=== PATIENT | male | born 1970 | race Caucasian/White ===

== ENCOUNTER → 2019-01-24 | Outpatient (CLI) | payer BC ==
--- NOTE | 2019-01-26 07:21 | MRI ---
EXAM DESCRIPTION: MRI right knee CLINICAL HISTORY: Medial sided knee pain COMPARISON: None. TECHNIQUE: Multiplanar, multisequence MR images of the right knee FINDINGS: Tear of the medial meniscus posterior body. Intrameniscal globular signal with a linear tear from the periphery of the inferior articular surface. Subluxation of the peripheral meniscus into the inferior medial gutter. Subjacent chondrosis along the medial tibial margin and underlying osseous edema along the tibial margin. Chondral thinning along the anterior medial plateau with 2 additional foci of edema. No subchondral marrow edema in the femur No lateral meniscal tear. No high-grade chondrosis or chronic osteochondral lesion lateral femorotibial Grade 4 chondrosis upper patellar apex extending medially over about 12 x 10 mm. Subchondral cystic change and edema. The remainder of the patellar cartilage is intact. Trochlear chondral thinning, grade 2/3 over the lower medial trochlea about 9 mm ACL, PCL, MCL and fibular collateral ligaments are intact. Periligamentous edema MCL relates to the medial meniscal tear and chondrosis. No MCL laxity or intrinsic signal Biceps femoris, popliteus and iliotibial band tendons are normal. Patellar and quadriceps tendons and tendons of the posterior medial knee are intact Small joint effusion. No synovitis. Intra-articular body, 3 mm and a small recess behind the PCL IMPRESSION: Tear of the posterior body medial meniscus with subluxation into the inferior medial gutter. 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
== END ==
LOC: MRI 11:00
PROVIDERS: ATTEND Family Medicine
DX: S83.241A Other tear of medial meniscus, current injury, right knee, initial encounter (principal); M22.8X1 Other disorders of patella, right knee

== ENCOUNTER 2019-01-28 10:11 | Emergency (ER) | payer BC ==
[2019-01-28] MEDS ORDERED: SODIUM CHLORIDE 0.9% (FLUSH) 10 ML SYG IV PRN (10:22)
[2019-01-28] MEDS: ASPIRIN TABLET 325 MG TAB PO ONE (10:26)
--- NOTE | 2019-01-28 10:54 | RAD ---
EXAM DESCRIPTION: Chest,1 View CLINICAL HISTORY: 48 years Male, chest tightness COMPARISON: None. TECHNIQUE: AP portable chest. FINDINGS: Heart size is prominent with normal pulmonary vascularity. Minimal patchy atelectasis lung bases. Otherwise no consolidating infiltrate. No pulmonary mass or worrisome nodule. No pneumothorax or pleural effusion. Bones are unremarkable. IMPRESSION: No acute process is identified in the chest. Electronically signed by: Choco Chapman MD 01/28/2019 10:52 AM CDT
--- NOTE | 2019-01-28 11:15 | ED.PDOC ---
History of Present Illness - General Chief Complaint: Chest Pain/HI Stated Complaint: difficulty breathing,chest tightness Time Seen by Provider: 01/28/19 11:13 Source: patient Exam Limitations: no limitations - History of Present Illness Initial Comments: Abelardo weiner Jr. 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 No chronic medical problem.On arrival at er stated symptoms better. Timing/Duration: 4-6 hours Severity: moderate Location: central Activities at Onset: activity Prior Chest Pain/Cardiac Workup: no prior chest pain Improving Factors: rest Worsening Factors: movement Nitro Today/Relief: no nitro taken today Aspirin Treatment Today: 81 mg x 4 Associated Symptoms: other - see hpi Allergies/Adverse Reactions: Allergies NO KNOWN ALLERGY Allergy (Verified 01/28/19 10:20) Home Medications: Ambulatory Orders Atorvastatin Calcium [Lipitor] 20 mg PO ACHS #30 tab 01/28/19 Diclofenac [Zorvolex] 35 mg PO BID 01/28/19 Nitroglycerin 0.4 mg Tab [Nitrostat] 1 ea SL .Q5M PRN #1 bttl 01/28/19 Review of Systems - Review of Systems Constitutional: States: no symptoms reported, chills Cardiology: States: see HPI Gastrointestinal/Abdominal: States: no symptoms reported Genitourinary: States: no symptoms reported Musculoskeletal: States: no symptoms reported Skin: States: no symptoms reported Neurological: States: no symptoms reported Endocrine: States: no symptoms reported All other Systems: Reviewed and Negative, No Change from Baseline Past Medical History (General) - Patient Medical History Hx Stroke: No Hx of COPD: Yes Hx Congestive Heart Failure: No Hx Diabetes: No Surgical History: other - c-spine - Vaccination History Hx Influenza Vaccination: No - Social History Hx Tobacco Use: Yes Hx Alcohol Use: Yes - occasiobnal;no heavy drinking Family Medical History - Family History Father Family History: Unknown Living Status: Unknown Hx Family Asthma: Yes - copd-dad Hx Cardiac Disease: Yes - mom Physical Exam - Physical Exam General Appearance: Alert, Comfortable, No apparent distress Eyes, Ears, Nose, Throat Exam: normal ENT inspection, TMs normal, pharynx normal Neck: non-tender, full range of motion, supple, normal inspection Respiratory: chest non-tender, lungs clear, normal breath sounds Cardiovascular/Chest: normal peripheral pulses, regular rate, rhythm, no murmur Peripheral Pulses: radial,right: 2+, radial,left: 2+ Gastrointestinal/Abdominal: normal bowel sounds, non tender, soft, no organomegaly Extremity: no pedal edema, no calf tenderness Neurologic: alert, oriented x 3 Skin Exam: warm/dry Progress - Progress Progress: 01/28/19 11:37 Vital Signs - 8 hr 01/28/19 01/28/19 01/28/19 10:17 10:22 11:32 Temperature 97 F L Pulse Rate 75 66 Pulse Rate [ 78 66 Left Brachial] Respiratory 20 16 Rate Blood Pressure 183/89 [Left Arm] O2 Sat by Pulse 99 99 Oximetry - Results/Orders Results/Orders: Laboratory Tests 01/28/19 01/28/19 01/28/19 10:35 10:55 13:55 WBC 7.5 RBC 5.12 Hgb 17.0 Hct 49.2 MCV 96.1 H MCH 33.2 H MCHC 34.6 RDW 13.4 Plt Count 243 MPV 8.1 Absolute Neuts (auto) 4.60 Absolute Lymphs (auto) 2.00 Absolute Monos (auto) 0.60 Absolute Eos (auto) 0.30 Absolute Basos (auto) 0.10 Neutrophils % 61.4 Lymphocytes % 26.3 Monocytes % 7.7 Eosinophils % 3.4 Basophils % 1.2 PT 9.9 INR 0.99 PTT (SP) 24.8 D-Dimer, Quantitative 0.19 Sodium 136 Potassium 4.0 Chloride 103 Carbon Dioxide 23 Anion Gap 14.0 BUN 16 Creatinine 0.75 BUN/Creatinine Ratio 21.3 H Random Glucose 122 H Serum Osmolality 274.5 L Calcium 9.7 Magnesium 2.2 Creatine Kinase 152 136 CK-MB (CK-2) 1.6 1.5 CK-MB (CK-2) % Not Reportable Not Reportable Troponin I < 0.02 < 0.02 DISCUSS TEST RESULT WITH PATIENT RECOMMENDED STAY IN HOSPITAL FOR OBS BUT DE CLINED ADVISED TO CALL UP PRIMARY MD IN AM FOR CARDIOLOGY CONSULT - EKG/XRAY/CT EKG: Sinus, no ST T wave changes Comments: HR-82;IRBBB XRAY: chest - no acute abnormalities Departure - Departure Clinical Impression: Chest tightness or pressure Time of Disposition: 14:55 Disposition: Discharge to Home or Self Care Departure Forms: ED Discharge - Pt. Copy, Patient Portal Self Enrollment Instructions: DI for Chest Pain, Smoking: Not Just Harmful to Your Lungs and Heart Referrals: Rafael Parr MD [Primary Care Provider] - 1-2 Weeks Prescriptions: Atorvastatin Calcium [Lipitor] 20 mg PO ACHS #30 tab Nitroglycerin 0.4 mg Tab [Nitrostat] 1 ea SL .Q5M PRN #1 bttl PRN Reason: Chest Pain Home Medications: Ambulatory Orders Atorvastatin Calcium [Lipitor] 20 mg PO ACHS #30 tab 01/28/19 Diclofenac [Zorvolex] 35 mg PO BID 01/28/19 Nitroglycerin 0.4 mg Tab [Nitrostat] 1 ea SL .Q5M PRN #1 bttl 01/28/19 Additional Instructions: NEED TO TAKE ASPIRIN -81 mg daily(over the counter);Call primary MD in AM for recheck and cardiology referral;RETURN TO EMERGENCY ROOM NEEDED
[2019-01-28 15:11] VITALS: BP 156/98; TEMP 97.5; O2SAT 97
== END 2019-01-28 15:11 | disposition home or self-care (01) ==
LOC: ER 10:11
DX: R07.89 Other chest pain (principal); I45.10 Unspecified right bundle-branch block; R11.0 Nausea; J44.9 Chronic obstructive pulmonary disease, unspecified; Z87.891 Personal history of nicotine dependence

== ENCOUNTER → 2019-02-14 | Outpatient (CLI) | payer BC ==
--- NOTE | 2019-02-14 09:52 | RAD ---
EXAM DESCRIPTION: Pelvis CLINICAL HISTORY: 48 years Male, M25.561/M25.551 COMPARISON: None. FINDINGS: X-ray view the pelvis shows intact bones of the pelvic ring with intact sacrum and lower L-spine. Right hip joint space narrowing is seen medially with femoral head neck junction osteophyte. Normal left hip. No fracture of the proximal femurs. No hip dislocation. IMPRESSION: Degenerative changes of the right hip. Electronically signed by: Choco Chapman MD 02/14/2019 9:50 AM CDT
--- NOTE | 2019-02-14 09:54 | RAD ---
EXAM DESCRIPTION: Knee,Right Complete x-ray CLINICAL HISTORY: 48 years, Male, M25.561/M25.551 COMPARISON: None TECHNIQUE: Four views of the right knee FINDINGS: No fracture or dislocation. Bones appear normally mineralized with normal trabecular pattern. Mild narrowing of medial compartment on frontal view. And mild spurring at the tibial spines. Lateral view shows normal position of the patella. No patellar spurring or enthesopathy. No suprapatellar knee joint effusion. Normal contour of quadriceps and patellar tendons. Fabella is seen posteriorly. Another smaller ossific density could be intra-articular loose body 3 mm. No abnormal patellar tilt or subluxation on patellar sunrise view. Subchondral cyst is seen at the apex of the posterior patella. Mild medial patellar spurring. IMPRESSION: Degenerative changes as described. Electronically signed by: Choco Chapman MD 02/14/2019 9:52 AM CDT
== END ==
LOC: RAD 08:51
PROVIDERS: ATTEND Orthopaedic Surgery
DX: M17.11 Unilateral primary osteoarthritis, right knee (principal); M16.11 Unilateral primary osteoarthritis, right hip

== ENCOUNTER → 2019-02-27 | Outpatient (CLI) | payer BC | LOC: LAB.O 14:22 | PROVIDERS: ATTEND Orthopaedic Surgery | DX: Z01.818 Encounter for other preprocedural examination (principal) ==

== ENCOUNTER 2019-04-17 05:55 | Day surgery (SDC) | payer BC ==
--- NOTE | 2019-04-15 10:45 | HP ---
CHIEF COMPLAINT: Right knee pain. HISTORY OF PRESENT ILLNESS: Mr. Mckinley is a 49-year-old male with a history of pain in the right knee that has been present for several months. He has had pain limiting his daily activity. The pain is at a 6 and aggravating factors include ambulation and range of motion. Alleviating factors have been anti- inflammatory and injection, however, these have been very short-lived. He has this pain every day and there are occasional mechanical symptoms associated with this. There is no other trauma associated with this. The pain is sharp and predominantly medially based. PAST SURGICAL HISTORY: None. MEDICATIONS: Zorvolex. PAIN CONTRACT: None. ALLERGIES: NO KNOWN DRUG ALLERGIES. CODE STATUS: Full code. IMMUNIZATIONS: Up to date. SOCIAL HISTORY: The patient does not smoke and does drink on occasion, but does not use illicit drugs. FAMILY HISTORY: None pertinent to today's complaint. REVIEW OF SYSTEMS: Negative except as indicated in the History of Present Illness. PHYSICAL EXAMINATION: VITAL SIGNS: Blood pressure 149/94. Pulse 78. Height 5'11". Weight 230 pounds. MENTAL STATUS: The patient is awake, alert, and is able to give a good history and participate in the physical. The patient is oriented to person, place and time. SKIN: Normal tone and turgor. HEENT: Normocephalic, atraumatic. Pupils equal, round and reactive. Mucosal membranes are moist. NECK: Normal range of motion. No thyromegaly, no lymphadenopathy. CHEST: Normal respiratory excursion. CARDIAC: Regular rate and rhythm. No murmurs, rubs or gallops. MUSCULOSKELETAL: Bilateral upper extremities show full active range of motion. He has intact sensation. They are warm and well perfused. There is no pain and no crepitus with range of motion of the shoulder, elbow, wrist and digits. There is no instability. There is no cyanosis or clubbing of the digits. The left lower extremity shows no pain to palpation. There is no deformity. Sensation is intact. Strength is 5/5. He has full range of motion in the hip, knee, ankle and digits. He has slight antalgic gait. The right lower extremity shows full range of motion of the hip. He has full extension of the knee and flexion is to about 120 degrees and he has pain throughout his range of motion. He has palpable crepitus. He has a negative anterior drawer and negative pivot shift with no varus or valgus instability. He does have positive Carlos's. He has some pain with valgus stress test. There is no swelling or effusion currently of the knee. IMAGING: My interpretation of the MRI shows complex tearing of the medial meniscus with some evidence of chondromalacia. ASSESSMENT: 1. Meniscus tear. 2. Chondromalacia. PLAN: The plan at this point is for knee arthroscopy. We have discussed the risks, benefits, and alternatives to that and the patient has given informed consent. #[id number] [facility]
[2019-04-17] MEDS ORDERED: PROPOFOL 200 MG/20 ML VIAL IV ONE (07:00)
[2019-04-17] MEDS ORDERED: DEXAMETHASONE INJ 10 MG/ML VIAL ONE (07:00)
[2019-04-17] MEDS ORDERED: ONDANSETRON INJ 4 MG/2 ML VIAL ONE (07:00)
[2019-04-17] MEDS ORDERED: KETOROLAC TROMETHAMINE INJ 30 MG/ML VIAL ONE (07:00)
[2019-04-17] MEDS ORDERED: LIDOCAINE 1% 10 ML VIAL INJ ONE (07:00)
[2019-04-17] MEDS ORDERED: SODIUM CHL 0.9% 100ML MINI-BAG 100 ML IVPB ONE (07:44)
[2019-04-17] MEDS ORDERED: ceFAZolin SODIUM 1 GM VIAL ONE ×2 (07:44→12:19)
[2019-04-17] MEDS: LACTATED RINGERS 1,000 ML ONE (09:45)
[2019-04-17] MEDS ORDERED: MIDAZOLAM INJ 2 MG/2 ML VIAL ONE (13:15)
[2019-04-17] MEDS ORDERED: fentaNYL CITRATE INJ 50 MCG/ML AMP ONE (13:15)
[2019-04-17] MEDS: ceFAZolin SODIUM 1 GM VIAL ONE ×3 (14:04→14:27)
[2019-04-17] MEDS: BUPIVACAINE 0.5% 30 ML VIAL INJ ONE ×2 (14:05→14:26)
[2019-04-17] MEDS: VANCOMYCIN HCL INJ 1,000 MG VIAL IVPB ONE ×2 (14:05→14:27)
[2019-04-17] MEDS: BUPIVACAINE LIPOSOME 13.3 MG/ML VIAL INJ ONE ×2 (14:05→14:26)
[2019-04-17] MEDS ORDERED: LACTATED RINGERS 1,000 ML IVS ONE (14:34)
[2019-04-17 16:02] VITALS: BP 144/88; TEMP 97.6; O2SAT 95
[2019-04-18] MEDS: LACTATED RINGERS 1,000 ML ONE (13:15)
--- NOTE | 2019-04-19 08:58 | OP ---
DATE OF PROCEDURE: 04/17/19 PREOPERATIVE DIAGNOSIS: 1. Meniscus tear. 2. Osteoarthritis. POSTOPERATIVE DIAGNOSIS: 1. Complex tear of the medial meniscus. 2. Advanced chondromalacia. PROCEDURE: 1. Partial meniscectomy. 2. Debridement. SURGEON: Damian Daigle MD. CHILD DEVELOPMENT CONSULTANT: Qasim Valladares CST, SA-C. ANESTHESIA: General anesthesia. COMPLICATIONS: None. FINDINGS: 1. Large complex tear with flap tear of the body of the medial meniscus. 2. Grade 3 to 4 changes in the medial tibial plateau. 3. Normal medial gutter. 4. Normal latter gutter. 5. Normal suprapatellar pouch. 6. Normal ACL and normal PCL. 7. Grade 2 changes of the lateral femoral compartment. 8. Normal lateral meniscus. 9. Grade 3 to 4 changes of the patellar surface. INDICATION: Mr. Mckinley has a long history of pain in the knee that has been associated with some mechanical symptoms. Because of the mechanical symptoms and his ongoing failure of more conservative measures. He has requested operative intervention. After discussing the risks, benefits and alternatives to that, the patient has given informed consent for that. PROCEDURE: The patient was brought to the Operating Room and placed in supine position. General anesthesia was induced and the patient's leg was sterilely prepped and draped. Following prepping and draping, anteromedial and anterolateral portals were established. Diagnostic arthroscopy was carried out with the above findings. A superolateral portal was established as well to probe the chondral surface of the patella. After diagnostic arthroscopy, a 3.5 mm full radius shaver was used to debride the meniscus. It was subsequently very thoroughly probed to ensure stability. A 3.5 mm full radius shaver was inserted through the superolateral portal and subsequently used to debride the chondral surface of the patella. The knee was thoroughly irrigated and drained. Following draining of the knee, the wounds were closed with Nylon suture. Sterile dressings were placed. The patient was awoken from anesthesia and taken to Recovery. POSTOPERATIVE PLAN: The patient will be non-weightbearing until he follows up with us in two days. #[id number] [facility]
== END 2019-04-17 15:40 | disposition home or self-care (01) ==
LOC: AMB 05:55
PROVIDERS: ATTEND Orthopaedic Surgery
DX: S83.231A Complex tear of medial meniscus, current injury, right knee, initial encounter (principal); M94.261 Chondromalacia, right knee; F41.9 Anxiety disorder, unspecified; I25.10 Atherosclerotic heart disease of native coronary artery without angina pectoris; I10 Essential (primary) hypertension; F17.210 Nicotine dependence, cigarettes, uncomplicated; E78.5 Hyperlipidemia, unspecified; Z79.899 Other long term (current) drug therapy
CPT/HCPCS: 01400; 29881; 36415; 80048; 80307; 81001; 85025; 87070; J0690; J1100; J1885; J2250; J2405; J3010; J3370; J3490; J7050; J7120

== ENCOUNTER → 2020-09-08 | Outpatient (CLI) | payer BC ==
--- NOTE | 2020-09-08 14:22 | RAD ---
XR CHEST 2 VIEWS HISTORY: 50 years Male shortness of breath COMPARISON: January 28, 2019. TECHNIQUE: Single AP view of the chest. FINDINGS: Lungs: Diffuse pulmonary interstitial prominence and peribronchial cuffing suggesting airway inflammation. Subtle perihilar hazy opacities concerning for airspace disease. Findings are concerning for multifocal pneumonia. Heart/Mediastinum: Heart size normal. Atherosclerotic changes are noted in the aorta. Bones: No acute abnormality detected. IMPRESSION: Finding concerning for multifocal pneumonia, including possible viral pneumonia. Electronically signed by: Loco Sheth MD 09/08/2020 2:20 PM [facility]
== END ==
LOC: RAD 09:22
PROVIDERS: ATTEND Physician Assistant
DX: R06.02 Shortness of breath (principal); R91.8 Other nonspecific abnormal finding of lung field